=== PATIENT | female | born 1985 ===

== ENCOUNTER 2017-02-10 19:19 | Observation (INO) | payer OTHER ==
[2017-02-10 19:34] VITALS: BMI 34.9
[2017-02-10 19:40] VITALS: O2SAT 96
--- NOTE | 2017-02-10 21:12 | C.PDOC ---
History Of Present Illness 31 year old female BIBA with after excessive ETOH consumption at a local bar. Patient is stuporous and actively vomiting; denies physical complaints at this time. Time Seen by Provider: 02/10/17 20:37 Chief Complaint (Nursing): Substance Abuse History Per: Patient History/Exam Limitations: no limitations Onset/Duration Of Symptoms: Hrs Current Symptoms Are (Timing): Still Present Suicide/Self Injury Attempted (Context): None Modifying Factor(s): Alcohol Associated Symptoms: denies: Depression, Suicidal Thoughts, Suicidal Plan Involuntary Hold By: None Recent travel outside of the [place]: No Past Medical History Reviewed: Historical Data, Nursing Documentation, Vital Signs Vital Signs: Last Vital Signs Temp 97.6 F 02/10/17 19:34 Pulse 84 02/10/17 19:34 Resp 22 02/10/17 19:34 BP 97/63 L 02/10/17 19:34 Pulse Ox 96 02/10/17 21:18 - Medical History PMH: HTN Surgical History: No Surg Hx Family History: States: Unknown Family Hx - Social History Hx Alcohol Use: Yes Hx Substance Use: No - Immunization History Hx Tetanus Toxoid Vaccination: Yes Hx Influenza Vaccination: Yes Hx Pneumococcal Vaccination: No Review Of Systems Constitutional: Negative for: Fever, Chills Gastrointestinal: Positive for: Vomiting. Negative for: Nausea, Diarrhea Physical Exam - Physical Exam Appears: Non-toxic, Other (Morbidly obese, ETOH on breath) Skin: Normal Color, Warm, Dry Head: Atraumatic, Normacephalic Oral Mucosa: Moist Chest: Symmetrical, No Tenderness Cardiovascular: Rhythm Regular, No Murmur Respiratory: Normal Breath Sounds, No Rales, No Rhonchi, No Wheezing Gastrointestinal/Abdominal: Soft, No Tenderness Neurological/Psych: Oriented x3, Normal Speech, Normal Cognition, Other (No focal deficits) ED Course And Treatment O2 Sat by Pulse Oximetry: 96 Progress Note: 2300: verbal argument with her , Security escorted the from the ED. pt attempted to elope and Code Valentin called: pt in 4 pt restraints but not sedated. 0000: pt coherent, cooperative, clinically sober. Medical Decision Making Medical Decision Making: alcohol aubse ED OBSERVATION Discharge: Yes Date of observation admission: 02/10/17 Time of observation admission: 20:17 - Observation admission statement Patient is being placed in observation because:: Acute ETOH intoxication - Goals of Observation Goals of observation are:: Sobriety Disposition Doctor Will See Patient In The: Office Counseled Patient/Family Regarding: Studies Performed, Diagnosis - Disposition Disposition: HOME/ ROUTINE Disposition Time: 00:10 Condition: GOOD - Clinical Impression Clinical Impression: Alcohol abuse - Scribe Statement The provider has reviewed the documentation as recorded by the Rosieibshiela Tinajero All medical record entries made by the Babak were at my direction and personally dictated by me. I have reviewed the chart and agree that the record accurately reflects my personal performance of the history, physical exam, medical decision making, and the department course for this patient. I have also personally directed, reviewed, and agree with the discharge instructions and disposition.
[2017-02-10] MEDS ORDERED: DiphenhydrAMINE 50 mg/ml Inj IM STA (22:56)
[2017-02-10] MEDS ORDERED: DiphenhydrAMINE 50 mg/ml Inj ONE (23:40)
[2017-02-11 00:10] VITALS: BP 130/79; PULSE 132; RESP 18; TEMP 98.4
== END 2017-02-11 00:08 | disposition home or self-care (01) ==
LOC: C.ER 19:19 → C.9OBSV 20:41
PROVIDERS: ADMIT Internal Medicine; ATTEND Internal Medicine
DX: F10.129 Alcohol abuse with intoxication, unspecified (principal); Y90.9 Presence of alcohol in blood, level not specified
CPT/HCPCS: 99284; G0378; J1200; J2060; J3486